=== PATIENT | female | born 1980 | race Caucasian/White ===

== ENCOUNTER 2017-09-19 18:24 | Emergency (ER) ==
[2017-09-19 18:27] VITALS: BP 137/86; TEMP 98.7; BMI 27.8
[2017-09-19] MEDS ORDERED: NORCO 7.5-325 PO STA (19:47)
--- NOTE | 2017-09-19 19:50 | ED.PDOC ---
General ED Provider: Dr. ALISON GARDUNO Chief Complaint: Tooth Problem Stated Complaint: bEEN HURTING RIGHT LOWER TEETH, HAS DENTAL CARIES, STARTED HURTING FOR 1 DAYS. has f/u with dentist in 2 weeks. Time Seen by Physician: 19:48 Mode of Arrival: Walk-In Information Source: Patient Nursing and Triage Documentation Reviewed and Agree: Yes Reviewed sepsis parameters & appropriate labs ordered?: No System Inflammatory Response Syndrome: Not Applicable Sepsis Protocol: For patient's 13 years and over: Temp is 96.8 and below OR 101 and greater Pulse >90 BPM Resp >20/minute Acutely Altered Mental Status Are patient's symptoms suggestive of a new infection, such as: -Pneumonia -Skin, Soft Tissue -Endocarditis -UTI -Bone, Joint Infection -Implantable Device -Acute Abdominal Infection -Wound Infection -Meningitis -Blood Stream Catheter Infection -Unknown EENT Complaint Exam - Dental/Oral Complaint/Exam Mechanism of Injury: No known trauma Symptoms Are: Still present Timing: Constant Initial Severity: Moderate Current Severity: Moderate Character: Reports: Aching, Throbbing Aggravating: Reports: Heat, Cold, Chewing Alleviating: Reports: None Associated Signs and Symptoms: Reports: Swelling, Foul odor Related History: Reports: Similar episode Cardiac Risk Factors: Reports: None Dental/Oral Surgical History: Reports: None Tooth Findings: Present: Gross caries, Cellulitis Cervical Lymphadenopathy Present: No Facial Swelling Present: No Bleeding Present: No Septal Hematoma: No Foreign Body Present: No Dysphagia Present: No Drooling Present: No Asymmetrical Tonsillar Swelling Present: No Uvula Midline: No Theresa-tonsillar Fluctuence: No Trismus Present: No Palatal Petechiae Present: No Teeth Picture: 1 - dental caries. Differential Diagnoses: Dental Caries Review of Systems - Review Of Systems Constitutional: Reports: No symptoms Eyes: Reports: No symptoms Ears, Nose, Mouth, Throat: Reports: Mouth pain Respiratory: Reports: No symptoms Cardiac: Reports: No symptoms GI: Reports: No symptoms : Reports: No symptoms Musculoskeletal: Reports: No symptoms Skin: Reports: No symptoms Neurological: Reports: No symptoms Endocrine: Reports: No symptoms Hematologic/Lymphatic: Reports: No symptoms All Other Systems: Reviewed and Negative Past Medical History - Past Medical History Previously Healthy: Yes Endocrine: Reports: Hypothyroid Cardiovascular: Reports: None Respiratory: Reports: None Hematological: Reports: None Gastrointestinal: Reports: GERD, Liver (Hepatitis C ) Genitourinary: Reports: Kidney stones Neuro/Psych: Reports: Migraine, Anxiety, Depression Musculoskeletal: Reports: None Cancer: Reports: None Last Menstrual Period: 2 weeks ago Other Pertinent Past Medical History: Dermatitis - Surgical History General Surgical History: Reports: , Other (Sne logged in common duct ) - Family History Family History: Reports: None - Social History Smoking Status: Current every day smoker, Heavy tobacco smoker Smoking Cessation Counseling Time: > 10 min Hx Substance Use: No Alcohol Screening: None Physical Exam - Physical Exam Appearance: Well-appearing, No pain distress, Well-nourished Eyes: ISRA, EOMI, Conjunctiva clear ENT: Ears normal, Nose normal, Oropharynx normal Respiratory: Airway patent, Breath sounds clear, Breath sounds equal, Respirations nonlabored Cardiovascular: RRR, Pulses normal, No rub, No murmur GI/: Soft, Nontender, No masses, Bowel sounds normal, No Organomegaly Musculoskeletal: Normal strength, ROM intact, No edema, No calf tenderness Skin: Warm, Dry, Normal color Neurological: Sensation intact, Motor intact, Reflexes intact, Cranial nerves intact, Alert, Oriented Psychiatric: Affect appropriate, Mood appropriate Critical Care Note - Critical Care Note Total Time (mins): 20 Course - Course Orders, Labs, Meds: Orders Category Date Time Status Hydrocodone Bit/Acetaminophen [[place] 7.5-325] MEDS 09/19/17 19:47 Stat 1 tab PO ONCE STA Vital Signs: Temp Pulse Resp BP Pulse Ox 09/19/17 18:25 98.7 F 97 H 20 137/86 98 Departure - Departure Time of Disposition: 19:52 Disposition: HOME SELF-CARE Discharge Problem: Dental caries Instructions: Toothache (ED) Condition: Stable Pt referred to PMD for follow-up: Yes (dentist) IPMP verified?: Yes Additional Instructions: Keep f/u with Dentist Dental hygiene Prescriptions: Amoxicillin/Potassium Clav [Augmentin 500-125 mg Tab] 1 tab PO Q12HR #20 tablet Hydrocodone/Acetaminophen [[place] 5-325 Tablet] 1 tab PO TID PRN #10 tablet PRN Reason: PAIN Allergies/Adverse Reactions: Allergies aspirin Adverse Reaction (Verified 09/19/17 18:27) Home Medications: Ambulatory Orders Amoxicillin/Potassium Clav [Augmentin 500-125 mg Tab] 1 tab PO Q12HR #20 tablet 09/19/17 Hydrocodone/Acetaminophen [[place] 5-325 Tablet] 1 tab PO TID PRN #10 tablet 09/19 Disposition Discussed With: Patient
== END 2017-09-19 20:03 | disposition home or self-care (01) ==
LOC: ED 18:24
DX: K02.7 Dental root caries (principal); F17.210 Nicotine dependence, cigarettes, uncomplicated
CPT/HCPCS: 99282

== ENCOUNTER 2018-07-18 19:22 | Emergency (ER) ==
[2018-07-18 19:32] VITALS: BP 140/76; TEMP 96.7; BMI 29.2
[2018-07-18] MEDS ORDERED: DEXTROSE 5%-NS IV SOLUTION 1,000 ML IV STA (20:05)
--- NOTE | 2018-07-18 20:05 | ED.PDOC ---
General ED Provider: Dr. ALONZO SALDANA MD Chief Complaint: Non-specific Complaint Stated Complaint: i dont feel good Time Seen by Physician: 20:00 Mode of Arrival: Walk-In Information Source: Patient, Police Exam Limitations: No limitations Nursing and Triage Documentation Reviewed and Agree: Yes Does patient meet sepsis criteria?: No If yes, has appropriate treatment been initiated?: Yes System Inflammatory Response Syndrome: Not Applicable Sepsis Protocol: For patient's 13 years and over: Temp is 96.8 and below OR 101 and greater Pulse >90 BPM Resp >20/minute Acutely Altered Mental Status Are patient's symptoms suggestive of a new infection, such as: -Pneumonia -Skin, Soft Tissue -Endocarditis -UTI -Bone, Joint Infection -Implantable Device -Acute Abdominal Infection -Wound Infection -Meningitis -Blood Stream Catheter Infection -Unknown Review of Systems - Review Of Systems Constitutional: Reports: No symptoms Eyes: Reports: No symptoms Ears, Nose, Mouth, Throat: Reports: No symptoms Respiratory: Reports: No symptoms Cardiac: Reports: No symptoms GI: Reports: No symptoms : Reports: No symptoms Musculoskeletal: Reports: No symptoms Skin: Reports: No symptoms Neurological: Reports: No symptoms Endocrine: Reports: No symptoms Hematologic/Lymphatic: Reports: No symptoms All Other Systems: Reviewed and Negative Past Medical History - Past Medical History Previously Healthy: Yes Endocrine: Reports: Hypothyroid Cardiovascular: Reports: None Respiratory: Reports: None Hematological: Reports: None Gastrointestinal: Reports: GERD, Liver (Hepatitis C ) Genitourinary: Reports: Kidney stones Neuro/Psych: Reports: Migraine, Anxiety, Depression Musculoskeletal: Reports: None Cancer: Reports: None Last Menstrual Period: 2 DAYS AGO Other Pertinent Past Medical History: Dermatitis - Surgical History General Surgical History: Reports: , Other (Sne logged in common duct ) - Family History Family History: Reports: None - Social History Smoking Status: Current every day smoker, Heavy tobacco smoker Hx Substance Use: Yes Alcohol Screening: None - Immunizations Tetanus Shot up to Date: (UNKNOWN) Physical Exam - Physical Exam Appearance: Well-appearing, No pain distress, Well-nourished Ill-appearing: None Pain Distress: None Eyes: ISRA, EOMI, Conjunctiva clear ENT: Ears normal, Nose normal, Oropharynx normal Respiratory: Airway patent, Breath sounds clear, Breath sounds equal, Respirations nonlabored Cardiovascular: RRR, Pulses normal, No rub, No murmur GI/: Soft, Nontender, No masses, Bowel sounds normal, No Organomegaly Musculoskeletal: Normal strength, ROM intact, No edema, No calf tenderness Skin: Warm, Dry, Normal color Neurological: Sensation intact, Motor intact, Reflexes intact, Cranial nerves intact, Alert, Oriented Psychiatric: Depressed Critical Care Note - Critical Care Note Total Time (mins): 0 Course - Course Hematology/Chemistry: 07/18/18 20:10 07/18/18 20:10 Orders, Labs, Meds: Lab Review 07/18/18 07/18/18 20:10 20:10 WBC 11.42 H RBC 4.32 Hgb 13.0 Hct 39.3 MCV 91.0 MCH 30.1 MCHC 33.1 RDW Coeff of Omayra 11.9 Plt Count 266 Immature Gran % (Auto) 0.4 Neut % (Auto) 85.1 Lymph % (Auto) 7.3 L [place] % (Auto) 6.0 Eos % (Auto) 0.8 Baso % (Auto) 0.4 Immature Gran # (Auto) 0.0 Neut # (Auto) 9.7 H Lymph # (Auto) 0.8 [place] # (Auto) 0.7 Eos # (Auto) 0.1 Baso # (Auto) 0.0 Sodium 135.5 Potassium 5.02 Chloride 104.1 Carbon Dioxide 27.0 Anion Gap 9.42 BUN 11.1 Creatinine 0.88 Estimated GFR (MDRD) 72.00 BUN/Creatinine Ratio 12.61 Glucose 126.4 H Calcium 9.15 Total Bilirubin 0.99 AST 53.8 H ALT 35.0 Alkaline Phosphatase 65.5 Total Protein 8.10 Albumin 4.39 Globulin 3.71 Albumin/Globulin Ratio 1.18 Orders Category Date Time Status IV [ED IV/MEDIPORT/POWERPORT] .ONCE EMERGENCY 07/18/18 20:04 Active CBC W/ AUTO DIFF Stat LAB 07/18/18 20:10 Completed CMP [COMPREHENSIVE METABOLIC PANEL] Stat LAB 07/18/18 20:10 Completed 0.9 % Sodium Chloride [Saline Flush] MEDS 07/18/18 20:04 Ordered 1 syr IVF PRN PRN Dextrose 5 % and 0.9 % NaCl [Dextrose 5%-Ns IV Solution MEDS 07/18/18 20:05 Discontinued ] 1,000 ml IV BOLUS Medications Generic Name Dose Route Start Last Admin Trade Name Freq PRN Reason Stop Dose Admin Sodium Chloride 1 syr 07/18/18 20:04 Saline Flush IVF PRN PRN To flush IV Discontinued Medications Generic Name Dose Route Start Last Admin Trade Name Freq PRN Reason Stop Dose Admin Dextrose/Sodium Chloride 1,000 mls @ 1,000 mls/hr 07/18/18 20:05 07/18/18 20: 16 Dextrose 5%-Ns Iv Solution IV 07/18/18 21:04 1,000 mls/hr BOLUS STA Administration Vital Signs: Temp Pulse Resp BP Pulse Ox 07/18/18 19:23 96.7 F L 97 H 18 140/76 98 Departure - Departure Time of Disposition: 21:30 Disposition: HOME SELF-CARE Discharge Problem: Viral syndrome Instructions: Viral Syndrome (ED) Condition: Good Pt referred to PMD for follow-up: Yes IPMP verified?: No Allergies/Adverse Reactions: Allergies aspirin Adverse Reaction (Verified 07/18/18 19:32) Home Medications: Ambulatory Orders 1 [No Reported Medications] 07/18/18 Transfer Form Completed: No Disposition Discussed With: Patient
== END 2018-07-18 21:44 | disposition home or self-care (01) ==
LOC: ED 19:22
DX: B34.9 Viral infection, unspecified (principal); F17.210 Nicotine dependence, cigarettes, uncomplicated
CPT/HCPCS: 36415; 80053; 85025; 96360; 96361; 99282